=== PATIENT | male | born 1995 | race Caucasian/White ===

== ENCOUNTER 2022-09-07 09:27 | Emergency (ER) | payer MEDICAID, SELFPAY ==
[2022-09-07 09:43] VITALS: BP 121/66; PULSE 55; RESP 18; TEMP 36.4; O2SAT 100; BMI 23.6
--- NOTE | 2022-09-07 10:42 | ED.EXTPRO ---
HPI - Extremity Problem General Chief complaint: Extremity Problem Stated complaint: Left Hand Arm Numbness Neck Pain Time Seen by Provider: 09/07/22 10:15 History of Present Illness HPI Narrative: Patient complains of left hand and wrist tingling after spending sometime typing in the library, the tingling is along the ulnar aspect of the hand it is not accompanied by any loss of sensation, there is no muscle weakness, there have been no fevers there is no radiating pain from the neck or the shoulder, the tingling is located only in the wrist and the fingers and hand Patient denies any other injury denies any redness or warmth, no other extremity tingling or discomfort, patient has no left-sided neck pain today, but does have a history of pain in the neck on the right side, but there is no radiation of pain on either side of the neck today Related Data Allergies Allergy/AdvReac Type Severity Reaction Status Date / Time No Known Allergies Allergy Verified 09/07/22 09:43 [facility] Past Medical History Source: nursing notes reviewed Social History Social History Advance Directives: No Advance Directives Information Provided: No Physical Exam Vital Signs: Vital Signs: Last Vital Signs Temp 97.6 F 09/07/22 09:43 Pulse 55 09/07/22 09:43 Resp 18 09/07/22 09:43 BP 121/66 09/07/22 09:43 Pulse Ox 100 09/07/22 09:43 BMI result Body Mass Index 23.6 General appearance is no distress Head is normocephalic atraumatic Neck is supple and nontender with full range of motion, there is some tenderness on the right side of the neck paraspinal lateral, there is some right trapezius tenderness, neck is full range of motion Chest is clear to auscultation bilateral chest wall nontender Extremities full range of motion x4 Left wrist and hand exam, there is full range of motion in left wrist and hand Sensation is intact and symmetrical in distal fingers on both hands, 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, neurovascular intact there are no rashes skin a is normal of in appearance Other extremities normal Neuro, interaction comprehension and expression are all normal, gait and balance are normal, motor is 5/5 x4 Course Course Course Narrative: Patient with 2 days of paresthesia is after typing for while in the library confined to left wrist and hand , no motor deficit no sensory deficit no other complaint is advised to follow up of paresthesias continue, otherwise well appearing comfortable pain-free and neurologically intact Discharge Plan Discharge Clinical Impression: Paresthesia Patient Disposition: Home, Self-Care Additional Instructions: It is not clear what is causing the tingling sensation in left hand and wrist, but is not concerning now There is no weakness of the muscles there is no loss of sensation It is possible that this is carpal tunnel, it is unlikely that the tingling is from her neck as it is only localized to the wrist and the hand Episodes of tingling are very common and often resolve on their own, if it does not resolve follow with primary doctor If tingling remains confined to just wrist and hand follow with orthopedist for evaluation for possible carpal tunnel There is no treatment now, best plan is if it goes away there is nothing to do if it continues follow-up and if anything gets worse return to the ER, especially 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
== END 2022-09-07 11:16 | disposition home or self-care (01) ==
PROVIDERS: Emergency Provider Emergency Medicine
DX: R20.2 Paresthesia of skin (principal)
CPT/HCPCS: 99282